=== PATIENT | female | born 1970 | race Caucasian/White ===

== ENCOUNTER 2018-05-06 21:24 | Inpatient (IN) | payer OTHER ==
[~2018-05-06] VITALS: Ht 160 cm; Wt 84.4 kg
[~2018-05-06 21:24] MED LIST: IBUPROFEN 800800 MG PO; NORCO 5-325 TA1 EACH PO
[2018-05-06 21:37] VITALS: BP 143/63
[2018-05-06 21:53] LABS: HCO3 17.3 mmol/L (22.0-26.0)
[2018-05-06 21:53] LABS: ABSOLUTE BASOPHILS 0.1 thou/uL (0.0-0.2); ABSOLUTE EOSINOPHILS 0.7 thou/uL (0.0-0.7); ABSOLUTE LYMPHOCYTES 4.9 thou/uL (0.8-5.3); ABSOLUTE NEUTROPHILS 9.7 thou/uL (1.6-8.1); BASOPHILS 0.8 %; EOSINOPHILS 4.3 %; HEMATOCRIT 46.1 % (37.0-47.0); HEMOGLOBIN 15.2 gm/dL (12.0-15.0); LYMPHOCYTES 29.6 %; MCH 30.8 pg (26.0-34.0); MCHC 33.1 g/dL (28.0-37.0); MONOCYTES 6.3 %; MPV 7.7 fl. (7.2-11.1); NUCLEATED RBCS 0 /100WBC; PLATELET COUNT* 351 thou/uL (150-400); RBC 4.96 mil/uL (4.20-5.00); RDW-CV 14.4 % (10.5-14.5); WBC 16.4 thou/uL (4.0-11.0)
[2018-05-06 21:55] LABS: PO2 250.7 mmHg (75.0-100.0); pH 7.141 (7.340-7.450)
[2018-05-06 21:58] LABS: POC CA IONIZED 4.6 mg/dL (4.5-5.3); POC CREATININE 0.8 mg/dL (0.6-1.3); POC HEMOGLOBIN 16.7 g/dL (12.0-17.0)
--- NOTE | 2018-05-06 22:00 | NUR ---
SEE CODE STROKE DOCUMENTAION
[2018-05-06 22:18] LABS: ANION GAP 20 mmol/L (7-16); APTT 27.2 Seconds (25.0-31.3); BUN 7 mg/dL (7-18); CALCIUM 8.7 mg/dL (8.5-10.1); CHLORIDE 94 mmol/L (98-107); CO2 21 mmol/L (21-32); CREATININE 1.1 mg/dL (0.6-1.3); GLUCOSE 136 mg/dL (70-99); SODIUM 135 mmol/L (136-145)
[2018-05-06 22:19] LABS: POTASSIUM 2.9 mmol/L (3.5-5.1)
[2018-05-06 22:25] LABS: ALBUMIN 3.8 g/dL (3.4-5.0); ALKALINE PHOSPHATASE 121 U/L (46-116); SGOT 12 U/L (15-37); SGPT 18 U/L (30-65); TOTAL BILIRUBIN 0.3 mg/dL (<0.1-1.0); TOTAL PROTEIN 7.7 g/dL (6.4-8.2); TROPONIN-I LEVEL <0.06 ng/mL (<0.06)
[2018-05-06 22:44] LABS: URINE BILIRUBIN NEGATIVE (Negative); URINE BLOOD NEGATIVE (Negative); URINE CLARITY CLEAR; URINE COLOR YELLOW; URINE GLUCOSE-RANDOM NEGATIVE (Negative); URINE KETONES NEGATIVE (Negative); URINE LEUKOCYTES-REFLEX NEGATIVE (Negative); URINE NITRITE-REFLEX NEGATIVE (Negative); URINE PROTEIN TRACE (Negative); URINE SPECIFIC GRAVITY >= 1.030 (1.005-1.030); URINE UROBILINOGEN 0.2 E.U./dl (0.2-1.0)
[2018-05-07] VITALS (33 sets, daily range): BP systolic 84–131; BP diastolic 44–75
[2018-05-07 00:58] LABS: BE 0.6 mmol/L (-2 to +3); HCO3 26.8 mmol/L (22.0-26.0); PCO2 49.1 mmHg (35.0-45.0); pH 7.355 (7.340-7.450)
[2018-05-07 01:03] LABS: PO2 > 488.8 mmHg (75.0-100.0)
--- NOTE | 2018-05-07 06:19 | NUR ---
PT RECIEVED FROM ER VIA STRETCHER AND MOVED TO HOSPITAL BED PER STAFF. TRAINING ENGINEER APPLIED. DISCUSSED WITH FAMILY THE POC AND HE VERBALOZED UNDERSTANDING. FOLWY INTACT AND PATENT DRAINING CLOUDY YELLOW URINE. PT REMIANS ON VENT WITH SETTINGS AC 15, FIO2 60% TV 500 PEEP 5. OGT CONNECTED TO LIS. VS STABLE AND NO ACUTE CHANGES DURING SHIFT. NO SZ ATIVITY NOTED. WILL CONTINUE TO MONITOR
[2018-05-07 08:31] LABS: HEMATOCRIT 39.4 % (37.0-47.0); HEMOGLOBIN 13.3 gm/dL (12.0-15.0); MCH 30.7 pg (26.0-34.0); MCHC 33.8 g/dL (28.0-37.0); MCV 90.8 fL (80.0-100.0); MPV 7.8 fl. (7.2-11.1); RBC 4.34 mil/uL (4.20-5.00); WBC 9.3 thou/uL (4.0-11.0)
[2018-05-07 08:49] LABS: ALBUMIN 2.9 g/dL (3.4-5.0); ALKALINE PHOSPHATASE 87 U/L (46-116); ANION GAP 7 mmol/L (7-16); BUN 6 mg/dL (7-18); CALCIUM 8.3 mg/dL (8.5-10.1); CHLORIDE 103 mmol/L (98-107); CHOLESTEROL 196 mg/dL (<200); CO2 28 mmol/L (21-32); CREATININE 0.6 mg/dL (0.6-1.3); GLUCOSE 90 mg/dL (70-99); HDL CHOLESTEROL 44 mg/dL (>40); LDL CHOLESTEROL 131 mg/dL (<100); MAGNESIUM 2.1 mg/dL (1.8-2.4); SGOT 11 U/L (15-37); SGPT 16 U/L (30-65); SODIUM 138 mmol/L (136-145); TC:HDL 4.5 Ratio (Not establshd); TOTAL BILIRUBIN 0.3 mg/dL (<0.1-1.0); TOTAL PROTEIN 6.1 g/dL (6.4-8.2); TRIGLYCERIDE 105 mg/dL (<150); VLDL 21 mg/dL (<40)
[2018-05-07 09:01] LABS: POTASSIUM 4.2 mmol/L (3.5-5.1); SERUM ASSESSMENT Clear
--- NOTE | 2018-05-07 10:24 | NUR ---
PATIENT SEDATED ON VENTILATOR. UNABLE TO PERFORM NIH STROKE SCALE AT THIS TIME.
--- NOTE | 2018-05-07 10:30 | NUR ---
INTERDISICPLINARY ROUNDS: PT ON . DALE IN ROOM/ANDREW GIBBONS [phone]. SHE STATED PT LIVES WITH HER S/O, ADAMS GIBBONS [phone]. ATTEMPTED TO CALL ADAMS BUT NO ANSWER AND UNABLE TO LEAVE MESSAGE CALL TO SISTER/VIVEK ALDRICH. 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 SHE WILL BRING COPY OF FORM BUT STATES THERE MAY BE ONE AT [facility] PT WAS THERE IN JULY/AUGUST OF THIS YEAR. SHE APPLIED FOR MEDICAID WHILE THERE AND PER VIVEK, THEY HAVEN'T HEARD. OFFERED [employer] TO ASSIST AND SHE WAS AGREEABLE, MESSAGE LEFT FOR LETY/COLEDocSend FOR ASSIST WITH CALEB. PER VIVEK, PT LIVES WITH EITHER ADAMS AND PT'S SON AND HIS FIANCE OR WITH HER BROTHER/AIRAM AND FATHER. VIVEK STATES SOMEONE IS ALWAYS WITH HER. AIRAM OR ADAMS TAKE PT TO DR MORFIN, SHE FOLLOWS AT [facility] IN [facility]. VIVEK STATES SHE WORKS M-F BUT CAN BE LEFT A MESSAGE AND SHE WILL CALL BACK JEFFY. CALL TO AIRAM/BROTHER. HE CONFIRMED INFO AND STATES PT USUALLY GETS HER MEDS AT [facility] OR [facility] ON . CALL TO BOTH, [facility] STATED PT IS NOT IN THEIR SYSTEMA DN / STATED PT HASN'T FILLED SINCE OCTOBER AND THEN IT WAS JUST FOR SEROQUEL 100MG HS. NURSE UPDATED WITH INFO. WILL FOLLOW
[2018-05-07 10:52] LABS: BE 2.6 mmol/L (-2 to +3); HCO3 27.7 mmol/L (22.0-26.0); PCO2 44.7 mmHg (35.0-45.0)
[2018-05-07 10:53] LABS: PO2 136.7 mmHg (75.0-100.0)
--- NOTE | 2018-05-07 13:23 | 2DMMODE ---
[place] [address] 2 D/M-MODE ECHOCARDIOGRAM Name: LEONEL COURTNEY Room: [address] IN [facility]#: [id number] Admission: 05/07/18 Attend Phys: Vic Yarbrough MD Discharge: Date of : 68 Date of Service: 05/07/18 1323 Report #: [id number] THIS REPORT FOR: //name// APPROVED REPORT Study performed: 05/07/2018 10:11:48 EXAM: Comprehensive 2D, Doppler, and color-flow Echocardiogram Patient Location: In-Patient Room #: [facility] Status: routine BSA: 1.87 HR: 77 bpm BP: 115/71 mmHg Rhythm: NSR Other Information Study Quality: Good Indications CVA/TIA Echo Enhancing Agent Indication: Rule out Shunt Agent(s) / Amount(s) Used: Agitated Saline 10 cc 2D Dimensions IVSd: 9.25 (7-11mm) LVOT Diam: 19.13 (18-24mm) LVDd: 45.27 mm PWd: 8.65 (7-11mm) Ascending Ao: 30.62 (22-36mm) LVDs: 26.71 (25-40mm) Aortic Root: 30.75 mm Volumes Left Atrial Volume (Systole) LA ESV Index: 14.30 mL/m2 Aortic Valve AoV Peak Krish.: 1.39 m/s AO Peak Gr.: 7.77 mmHg LVOT Max P.80 mmHg AO Mean Gr.: 4.39 mmHg LVOT Mean P.00 mmHg LVOT Max V: 1.10 m/s AO V2 VTI: 22.04 cm LVOT Mean V: 0.63 m/s JESSICA (VTI): 2.51 cm2 LVOT V1 VTI: 19.27 [place] [address] 2 D/M-MODE ECHOCARDIOGRAM Name: LEONEL COURTNEY Room: [address] IN ..#: [id number] Admission: 05/07/18 Attend Phys: Vic Yarbrough MD Discharge: Date of : 68 Date of Service: 05/07/18 1323 Report #: [id number] Mitral Valve E/A Ratio: 1.20 MV Decel. Time: 248.63 ms MV E Max Krish.: 0.69 m/s MV PHT: 72.10 ms MVA (PHT): 3.05 cm2 TDI E/Lateral E': 4.31 E/Medial E': 5.75 Medial E' Krish.: 0.12 m/s Lateral E' Krish.: 0.16 m/s Pulmonary Valve PV Peak Krish.: 1.00 m/s PV Peak Gr.: 3.97 mmHg Left Ventricle The left ventricle is normal size. There is normal LV segmental wall motion. There is normal left ventricular wall thickness. Left ventricular systolic function is normal. LVEF is 60-65%. The left ventricular diastolic function is normal. Right Ventricle The right ventricle is normal size. The right ventricular systolic function is normal. Atria The left atrium size is normal. PFO is noted. The right atrium size is normal. Aortic Valve The aortic valve is normal in structure. No aortic regurgitation is present. There is no aortic valvular stenosis. Mitral Valve The mitral valve is normal in structure. Mild mitral regurgitation. No evidence of mitral valve stenosis. Tricuspid Valve The tricuspid valve is normal in structure. Unable to assess PA pressure. Trace tricuspid regurgitation. Pulmonic Valve The pulmonary valve is normal in structure. There is no pulmonic valvular regurgitation. Great Vessels [address] [address] 2 D/M-MODE ECHOCARDIOGRAM Name: LEONEL COURTNEY Room: [address] IN [facility]#: [id number] Admission: 05/07/18 Attend Phys: Vic Yarbrough MD Discharge: Date of : 68 Date of Service: 05/07/18 1323 Report #: [id number] The aortic root is normal in size. IVC is normal in size and collapses >50% with inspiration. Pericardium There is no pericardial effusion. <Conclusion> The left ventricle is normal size. There is normal left ventricular wall thickness. Left ventricular systolic function is normal. LVEF is 60-65%. The left ventricular diastolic function is normal. PFO is noted. Mild mitral regurgitation. IVC is normal in size and collapses >50% with inspiration. <ELECTRONICALLY SIGNED> By: Aniceto Irwin MD, FACC 05/07/18 1323 1323 1323 Aniceto Irwin MD, FACC /INF
[2018-05-07 14:03] LABS: AMP/METHAMP Negative (Negative); BARBITURATES Negative (Negative); BENZODIAZEPINES POSITIVE (Negative); COCAINE Negative (Negative); METHADONE Negative (Negative); OPIATES Negative (Negative); PCP Negative (Negative); THC Negative (Negative)
--- NOTE | 2018-05-07 16:32 | EKG ---
[place] [address] ELECTROCARDIOGRAM REPORT Name: LEONEL COURTNEY Room: [address] [place]M IN .R.#: [id number] Admission: 05/07/18 Attend Phys: Vic Yarbrough MD Discharge: Date of : 68 Report #: [id number] THIS REPORT FOR: //name// [facility] ED Test Date: 2018-05-06 Test Time: 23:03:19 Pat Name: LEONEL COURTNEY Department: Room: [facility] Gender: F Limnology Teacher: : 1970 Requested By: Kimberly Lorenzo Order Number: [id number] MD: Aniceto Irwin Measurements Intervals [place] Rate: 90 P: 51 SD: 151 QRS: -17 QRSD: 106 T: 32 QT: 387 QTc: 474 Interpretive Statements Sinus rhythm Borderline left axis deviation No previous ECG available for comparison Electronically Signed On 05-07-2018 16:32:37 [employer] by Aniceto Irwin [email or web address] <ELECTRONICALLY SIGNED> By: Aniceto Irwin MD, [facility] 05/07/18 1632 2303 2303 Aniceto Irwin MD, FACC /EPI
--- NOTE | 2018-05-07 18:47 | NUR ---
PATIENT PROGRESSING TOWARDS GOALS. NO WITNESSED SEIZURES. EEG NEGATIVE FOR SEIZURES PER NEUROLOGY. PATIENT TOLERATED 3 HOUR SEDATION VACATION WITH SISTER IN LAW AT BEDSIDE. PLACED BACK ON SEDATION PER MEDICATION RECONCILLIATION FOR COMFORT. SIGNIFICANT OTHER (ADAMS) CALLED AND UPDATED TWICE. IS VERY SHORT ON THE PHONE, AND DOES NOT ASK MANY QUESTIONS. VIVEK (SISTER/SHMUELAN) CALLED BY THIS NURSE AND CASE MANAGEMENT AND UPDATED ON CARE WITH NO FURTHER QUESTIONS.
--- NOTE | 2018-05-07 19:33 | NUR ---
PATIENT SELF EXTUBATED AT 1900. PULMONARY PAGED. RT PAGED STAT. PATIENT SAT WNL, PLACED ON 2L NC. SEDATION DISCONTINUED. VITALS STABLE AT THIS TIME. AWAITING CALL BACK FROM PULMONARY, BUT PER NEUROLOGY, PATIENT OKAY TO EXTUBATE TODAY.
[2018-05-08] VITALS (13 sets, daily range): BP systolic 91–130; BP diastolic 47–80
[2018-05-08 04:53] LABS: HEMATOCRIT 35.8 % (37.0-47.0); HEMOGLOBIN 12.4 gm/dL (12.0-15.0); MCH 31.1 pg (26.0-34.0); MCHC 34.5 g/dL (28.0-37.0); MCV 89.9 fL (80.0-100.0); MPV 7.7 fl. (7.2-11.1); RBC 3.99 mil/uL (4.20-5.00); RDW-CV 14.1 % (10.5-14.5); WBC 7.7 thou/uL (4.0-11.0)
--- NOTE | 2018-05-08 05:02 | NUR ---
CARE ASSUMMED AND REPORT REPCIEVED FROM OFF GING SHIFT. RESP REG AND UNALBORED SKIN W/D O2 3L BNC INTACT. NO ACUTE DISTRESS NOTED. PT IS NOT COOPERATIVE IN PERFORMING NIH SCALE, TOLD ME SHE WANTS TO BE LEFT ALONE AND TO SLEEP. PT CONTINUALLY PULLING OFF GOWN REHABILITATION COUNSELLOR AND OTHER MONITORS AND THROWING IN FLOOR. REHABILITATION COUNSELLOR INTACT WITH [facility] SET. 2350 ALARM WENT OFF AND WENT TO ROOM TO CHECK ON PATIENT SHE WAS SAYIGN LUCAS ENEEDED TO CHAU ALCALA WITH BULB BLOWN UP NOTED TO BE LYING IN FLOOR ALONG WITH ALL MONITOR AND GOWN, WENT OT PLACE PT ON BEDPAN AND NOTED SHE HAD DCD HER CENTRAL LINE AND IT WAS LAYING IN BED WITH HER. NO BLEEDING FORM SIGHT, NO RESP DISTRESS NOTED. CATH TIP INTACT. DR NAPIER NOTIFED OF PATIENTS REMOVEAL OF LINES AND TUNES AND NO NEW ORDERS RECIEVED. NO ACUTE DISTRESS NOTED. VSS AND NO ACUTE CHANGES DURING SHIFT WILL CONTINUE TO MONITOR
[2018-05-08 05:10] LABS: ALBUMIN 2.8 g/dL (3.4-5.0); CALCIUM 8.6 mg/dL (8.5-10.1); CREATININE 0.7 mg/dL (0.6-1.3); MAGNESIUM 1.8 mg/dL (1.8-2.4); POTASSIUM 3.7 mmol/L (3.5-5.1); TOTAL BILIRUBIN 0.5 mg/dL (<0.1-1.0); TOTAL PROTEIN 5.8 g/dL (6.4-8.2)
--- NOTE | 2018-05-08 13:23 | NUR ---
REPORT GIVEN TO YULIET, ALL QUESTIONS ANSWERED. PATIENT TRANSFERED BY WHEELCHAIR TO ROOM 221 WITH NURSING STAFF. ALL BELONGINGS, CHART AND MEDICATION SENT WITH STAFF. SISTER IN LAW PRESENT AT TIME OF TRANSFER AND ADAMS CALLED AND NOTIFIED OF TRANSFER.
--- NOTE | 2018-05-08 16:30 | NUR ---
ASSUMED PT CARE AT 1315, PT OREINTED TO ROOM AND STAFF. PT A/O X3, IS FORGETFUL OF THE YEAR AND UNSURE OF THE FACILITY SHE IS AT. PT ANSWERED ALL QUESTIONS APPROPRIALTY AND WAS WILLING TO DO NIH WITH NURSE. PT USING CALL LIGHT APPROPRIALTY, IS IMPULSIVE, TOOK SHOWER WITH STAFF ASSISTANCE. PT SBA, FALL PRECAUTIONS IN PLACE, SEIZURE PRECAUTIONS IN PLACE. WILL CONTINUE WITH PLAN OF CARE
[2018-05-09] VITALS: BP 120/69
[2018-05-09 04:00] VITALS: BP 126/69
--- NOTE | 2018-05-09 07:01 | NUR ---
PATIENT IMPULSIVE AND IRRITABLE THROUGHOUT SHIFT, PATIENT FREQUENTLY CLIMBS OUT OF BED WITHOUT ASSISTANCE. PATIENT IRRITATED AT BED ALARM AND FALL PRECAUTIONS AND STATES "SHUT THAT DAMN THING OFF" AND "I AM FINE TO WALK." PATIENT UNSTEADY AND OBSERVED BUMPING INTO THINGS SUCH BED AND SINK WHILE WALKING TO THE BATHROOM. PATIENT ALSO RELUCTANT TO PARTICIPATE IN NIH. AFTER MUCH ENCOURAGEMENT TO PARTICIPATE, NIH COMPLETED AND SCORE 2 DUE TO DIFFICULTY IDENTIFYING OBJECTS, FORMING THOUGHTS, AND VISION DEFICITS, WHICH COULD BE RELATED TO NOT HAVING HER GLASSES WITH HER. CALL LIGHT WITHIN REACH
[2018-05-09 08:00] VITALS: BP 136/85
[2018-05-09] MEDS ORDERED: ADULT LOW DOSE81 MG PO (08:43)
[2018-05-09] MEDS ORDERED: ATORVASTATIN CA40 MG PO (08:43)
[2018-05-09] MEDS ORDERED: KEPPRA 500 MG500 M1 PO (08:43)
[2018-05-09 11:18] VITALS: BP 136/85
[2018-05-09 11:50] VITALS: BP 129/63
--- NOTE | 2018-05-09 14:02 | NUR ---
ASSUMED PT CARE AT 0730, FULL ASSESMENT DONE CHARTED. PT A/O X3, FORGETFUL AND CANNOT STATE WHERE SHE IS OR WERE SHE LIVES. PT C/O GAGE THIS AM, TYLENOL GIVEN. PT RESTING MOST OF THE AM, NO FAMILY IN ROOM UNTIL LUNCH TIME. DISCHARGE ORDER RECIEVED. SEIZURE PRECAUTIONS MAINTAINED. REVIEWED DISCHARGE WITH PT AND FAMILY. THEY VERBALIZED UDNERSTANDING. PT LEFT WITH FAMILY AT APPROX 1355
--- NOTE | 2018-05-10 08:07 | CON ---
[address] [address] CONSULTATION Name: LEONEL COURTNEY Naeem Room: [address] IN ..#: [id number] Admission: 05/07/18 Attend Phys: Vic Yarbrough MD Discharge: 05/09/18 Date of : 68 Report #: [id number] THIS REPORT FOR: //name// CC: FAM physician/PCP Arpit Yarbrough DATE OF SERVICE: 05/07/2018 PULMONARY CONSULTATION ATTENDING PHYSICIAN: Arpit Berry MD LOCATION: She is located in the ICU bed 8. INDICATION FOR CONSULTATION: Acute respiratory failures, status epilepticus and persistent seizures. HISTORY OF PRESENT ILLNESS: The patient is a 47-year-old female, current smoker with a history of brain abscess and drain placement and FISH AND WILDLIFE BIOLOGIST shunt. She presented to the Emergency Department unresponsive last night. The patient's family stated that the patient had tonic-clonic movements and a right gaze preference and lasted about 3 minutes followed by decreased responsiveness. She had 2 separate episodes with EMS present. She was unresponsive with respiratory acidosis and combined metabolic and lactic acidosis. She was seen in the Emergency Room and then was intubated for airway protection. She was unable to perform a stroke exam. CT scan of the head showed old strokes, FISH AND WILDLIFE BIOLOGIST shunt in good position and no cerebral edema noted. She was being loaded with Keppra today. She has had a reported seizure history related to brain abscess, but she was not on anti-seizure medications as far as we could see at home. PAST MEDICAL HISTORY: Includes history of a brain abscess, FISH AND WILDLIFE BIOLOGIST shunt placement and left hand pain, also history of seizures. ALLERGIES: SHE HAS ALLERGIES OR INTOLERANCES TO PENICILLIN. MEDICATIONS: Home medications are still being evaluated. Currently, she is on Protonix 40 mg IV push daily, Lovenox 40 mg subcutaneous daily and Keppra 500 mg b.i.d. IV. She was on some potassium supplements and DuoNeb treatments. She also had some low dose Diprivan for agitation and for seizures as well as the Versed drip. No antibiotics at this time. FAMILY HISTORY: Negative for premature cardiopulmonary disease. SOCIAL HISTORY: She lives at home. She has other family members there. They are not here currently and she has a history of current every day smoker, [place] [address] CONSULTATION Name: LEONEL COURTNEY Room: [address]#: [id number] Admission: 05/07/18 Attend Phys: Vic Yarbrough MD Discharge: 05/09/18 Date of : 68 Report #: [id number] a day and has about a 25- to 30-pack year history. Denies any alcohol or illicit drug use. REVIEW OF SYSTEMS: A 14-point review of systems reviewed and negative except for pertinent positives noted in HPI. PHYSICAL EXAMINATION: GENERAL: This is a 47-year-old female who is sedated on the ventilator. HEENT: Pupils are midpoint and reactive. She is orally intubated. OG tube is in place. NECK: Supple without nodes. CHEST: Clear to auscultation. CARDIOVASCULAR: Regular rate and rhythm without murmur, gallop or rub. Heart rate is in the 70s. ABDOMEN: Soft, without masses or megaly. EXTREMITIES: No calf tenderness. No cyanosis, clubbing or edema. She has some withdrawal to tactile stimuli. She is not opening her eyes spontaneously or following commands currently. LABORATORY DATA: From today, hemoglobin is 13, white count is 9300, previous white count 16,000 last night with normal differential and platelet count was 226,000. Sodium is 138, potassium is 4.2, chloride is 103, bicarbonate is 28, BUN is 6 with a creatinine of 0.6 and a GFR of 107. Lactic acid was 14 initially when she came in after seizure, now 1.1 this morning. LFTs were within normal limits. Albumin was low at 2.9. LDL cholesterol slightly elevated at 131, triglycerides were elevated at 105, cholesterol was 196. ABGs late last night on 100% Ambu bag showed a pO2 of 250, pH 7.14, pCO2 is 52, bicarbonate 17, sat was 91%. Then, repeat ABG after being on the ventilator last night into this morning on 50%, tidal volume 500, assist control of 16 and a PEEP of 5, shows a pO2 of 136, pH 7.41, pCO2 is 44, bicarbonate is 28 and sats 97%. Chest x-ray shows clear lung foss. ET tube in good position, left subclavian line in good position, no pneumothorax. CT of the head was noted as above with previous FISH AND WILDLIFE BIOLOGIST shunt and no intracerebral edema noted and shunt appears to be in good place. No abscess or bleed noted. IMPRESSION: 1. Acute respiratory failure secondary to neurologic status. 2. Status epilepticus, etiology unclear, may be related to old brain abscess, not certain if there is anything new. Nothing appears to be infectious at least at this time. No history of trauma. 3. Respiratory acidosis, metabolic acidosis, resolving. PLAN: Continue on with the ventilator. We will see if she neurologically improves, then we will see about waking her up. We will keep her on breathing treatments. She may have some mild chronic obstructive pulmonary disease with some mild CO2 elevation coming in to the hospital. Certainly when she is [address] [address] CONSULTATION Name: LEONEL COURTNEY Room: [address] IN ..#: [id number] Admission: 05/07/18 Attend Phys: Vic Yarbrough MD Discharge: 05/09/18 Date of : 68 Report #: [id number] stabilized and awake, would need full PFTs and possibly a sleep study to evaluate for underlying other disease processes. There has been a 33 minute critical care consult. <ELECTRONICALLY SIGNED> By: Joe Jules MD 05/10/18 0807 1713 [id number] Jules MD /nt
--- NOTE | 2018-05-11 14:49 | EEG ---
[address] [address] EEG STUDY REPORT Name: LEONEL COURTNEY Room: [address]#: [id number] Admission: 05/07/18 Attend Phys: Vic Yarbrough MD Discharge: 05/09/18 Date of : 68 Report #: [id number] THIS REPORT FOR: //name// CC: FAM physician/PCP Vic Yarbrough DATE OF SERVICE: 05/07/2018 This patient is being evaluated for the possibility of seizure. This patient's EEG was done by placing the electrodes by standard 10-20 system of electrode placement. Both referential and sequential montages were used for recording. Background activity in this patient's EEG is about 10 Hz and 30 microvolts. This is a symmetrical activity. Photic stimulation is unremarkable. No active epileptiform activity was noticed. IMPRESSION: This patient's EEG does not show any active epileptiform activity. <ELECTRONICALLY SIGNED> By: Kenyon Helms MD 05/11/18 1449 1519 1538Kenyon Helms MD /nt
--- NOTE | 2018-05-11 14:49 | CON ---
[address] [address] CONSULTATION Name: COURTNEYLEONEL K Room: [address] IN .R.#: [id number] Admission: 05/07/18 Attend Phys: Vic Yarbrough MD Discharge: 05/09/18 Date of : 68 Report #: [id number] THIS REPORT FOR: //name// CC: ALEJANDRO physician/PCP Vic Yarbrough DATE OF SERVICE: 05/07/2018 HISTORY OF PRESENT ILLNESS: This is a 47-year-old female patient who was evaluated by me for seizure. The patient is unable to provide any history at all. I reviewed all the records in the computer. I talked to the patient's family. I talked to the nurses looking after this patient. This patient was at [facility]. She was transferred to [facility] because she had an abscess. She underwent a craniotomy. It was left craniotomy. She may have had 1 or 2 seizures, but she was not on any seizure medications, nurses called and found that out. It looks like she became unresponsive and had a grand mal seizure. I looked at her EEG and EEG does not appear to be showing any active epileptiform activity at the moment. She was on Versed drip that has been tapered off, she has been given Keppra. She is somewhat responsive, but not purposeful. REVIEW OF SYSTEMS: Positive for some severe infection for which she saw Neurosurgery. It would appear the patient had seizure, although present EEG does not show any seizure activity, she also had a shunt put in. She has family, but the history is still very poor. A 14-point review of system was carried out in this patient, some from the record and some from the history, history is very poor and very difficult to tell. This was her relevant 14-point review of system. PAST MEDICAL HISTORY: Positive for seizure. FAMILY HISTORY: Negative for epilepsy. SOCIAL HISTORY: She apparently does not drink alcohol. PHYSICAL EXAMINATION: Indicate that she is drowsy with the painful stimuli. She wakes up some. It is difficult to do further evaluation in this patient. She closes her eyes shut. I cannot tell about any focal deficit. She is intubated. She is moderately well-built individual who does not have any dysmorphic features of eyes, ears and face. Cardiac examinations appear noncontributory. She is intubated. Blood pressure is 101/52, respirations 15, pulses 75. LABORATORY DATA: When she came in her potassium was 3, but sodium was 138, calcium was 8.3. CT [place] [address] CONSULTATION Name: LEONEL COURTNEY Room: [address]#: [id number] Admission: 05/07/18 Attend Phys: Vic Yarbrough MD Discharge: 05/09/18 Date of : 68 Report #: [id number] IMPRESSION: Seizure, most likely secondary to abscess. RECOMMENDATION: I discussed all the options with the patient's family. We have given this patient Keppra. She should get a second dose of Keppra tonight. Hopefully, she can be extubated tomorrow. Once she is extubated, we will do further workup. Further workup is very difficult. They do not know if the shunt is MRI compatible or not. Furthermore, they do not know if shunt needs to be reprogrammed if we do an MRI. I do not know how to even find out. Presently, there does not appear to be any sign of infection and we will just manage this patient by seizure medications and I talked to the family and they are agreeable with that. <ELECTRONICALLY SIGNED> By: Kenyon Helms MD 05/11/18 1449 1646 [id number] Helms MD /nt
== END 2018-05-09 13:55 | disposition home or self-care (01) | DRG 100 ==
LOC: M.ERS 21:24 → M.2W 05-07 00:53 → M.TBA-ER 05-07 00:53 → M.ICU 05-07 00:53 → M.2W 05-08 13:41
PROVIDERS: Internal Medicine; Internal Medicine Pulmonary Disease; Personal Emergency Response Attendant; ADMIT Family Medicine
PROC: 5A1935Z Respiratory Ventilation, Less than 24 Consecutive Hours (ICD-10-PCS; principal; 2018-05-07)
PROC: 0BH17EZ Insertion of Endotracheal Airway into Trachea, Via Natural or Artificial Opening (ICD-10-PCS; principal; 2018-05-07)
PROC: 02HV33Z Insertion of Infusion Device into Superior Vena Cava, Percutaneous Approach (ICD-10-PCS; principal; 2018-05-07)
DX: G40.401 Other generalized epilepsy and epileptic syndromes, not intractable, with status epilepticus (principal); J96.02 Acute respiratory failure with hypercapnia; E87.4 Mixed disorder of acid-base balance; E87.6 Hypokalemia; F17.210 Nicotine dependence, cigarettes, uncomplicated; E78.5 Hyperlipidemia, unspecified; Z79.899 Other long term (current) drug therapy; Z98.2 Presence of cerebrospinal fluid drainage device; Z88.0 Allergy status to penicillin; Z28.21 Immunization not carried out because of patient refusal

== ENCOUNTER 2019-07-15 06:47 | Emergency (ER) | payer OTHER ==
[~2019-07-15] VITALS: Ht 160 cm; Wt 79.4 kg
[~2019-07-15 06:47] MED LIST changes: +ADULT LOW DOSE81 MG PO; +ATORVASTATIN CA40 MG PO; +KEPPRA 500 MG500 M1 PO
[2019-07-15 07:42] LABS: ABSOLUTE BASOPHILS 0.1 thou/uL (0.0-0.2); ABSOLUTE EOSINOPHILS 0.6 thou/uL (0.0-0.7); ABSOLUTE LYMPHOCYTES 2.1 thou/uL (0.8-5.3); ABSOLUTE MONOCYTES 0.5 thou/uL (0.0-1.2); ABSOLUTE NEUTROPHILS 4.8 thou/uL (1.6-8.1); EOSINOPHILS 7.8 %; HEMOGLOBIN 15.8 gm/dL (12.0-15.0); LYMPHOCYTES 26.3 %; MCHC 34.4 g/dL (28.0-37.0); MCV 87.3 fL (80.0-100.0); MONOCYTES 5.9 %; MPV 7.9 fl. (7.2-11.1); NUCLEATED RBCS 0 /100WBC; PLATELET COUNT* 251 thou/uL (150-400); RBC 5.27 mil/uL (4.20-5.00); RDW-CV 14.5 % (10.5-14.5); WBC 8.2 thou/uL (4.0-11.0)
[2019-07-15 07:51] LABS: CALCIUM 8.4 mg/dL (8.5-10.1); CREATININE 0.8 mg/dL (0.6-1.3); POTASSIUM 3.4 mmol/L (3.5-5.1)
[2019-07-15 07:55] LABS: ALBUMIN 3.3 g/dL (3.4-5.0); TOTAL BILIRUBIN 0.4 mg/dL (<0.1-1.0); TOTAL PROTEIN 7.1 g/dL (6.4-8.2)
[2019-07-15 09:59] LABS: URINE BILIRUBIN NEGATIVE (Negative); URINE BLOOD NEGATIVE (Negative); URINE CLARITY CLEAR; URINE COLOR YELLOW; URINE GLUCOSE-RANDOM TRACE (Negative); URINE KETONES NEGATIVE (Negative); URINE LEUKOCYTES-REFLEX NEGATIVE (Negative); URINE NITRITE-REFLEX NEGATIVE (Negative); URINE PROTEIN NEGATIVE (Negative); URINE SPECIFIC GRAVITY 1.015 (1.005-1.030)
[2019-07-15 10:30] VITALS: BP 139/85
== END 2019-07-15 10:32 | disposition home or self-care (01) ==
LOC: M.ERS 06:47
PROVIDERS: Family Medicine
DX: R11.2 Nausea with vomiting, unspecified (principal); Z88.0 Allergy status to penicillin